=== PATIENT | male | born 1950 | race Caucasian/White ===

== ENCOUNTER 2025-03-01 23:56 | Emergency (ER) | payer OTHER ==
[2025-03-01] MEDS ORDERED: PHENYLEPHRINE 0.5% NOSE 15ML NAS ONE (23:58)
--- NOTE | 2025-03-02 00:30 | EDPHYS ---
Physician Documentation [facility] Name: Eusebio Saldana Age: 74 yrs Sex: Male : 1950 Arrival Date: 03/01/2025 Time: 23:56 Bed 13 Private MD: ED Physician Torsten Robles HPI: 03/02 00:04 This 74 yrs old Male presents to ER via Unassigned with complaints of epistaxis. ms3 00:04 74-year-old male presents to the emergency department via [facility] department for ms3 epistaxis that began approximately 1 hour prior to arrival. EMS estimates approximately 10 to 20 mL of blood loss. Patient denies trauma to his nose. Patient states he also had a nosebleed last week. Patient denies taking blood thinners, or pain.. Historical: - Allergies: 00:34 No Known Allergies; hm5 - PMHx: 00:34 Dementia; Hypertensive disorder; hm5 - Immunization history:: Adult Immunizations up to date. - Infectious Disease History:: Denies. - Social history:: Smoking status: unknown. ROS: 00:04 Constitutional: Negative for fever, and chills. ms3 00:04 Abdomen/GI: Negative for abdominal pain, nausea, vomiting, diarrhea, and constipation, MS/Extremity: Negative for injury and deformity, Skin: Negative for injury, rash, and discoloration, 00:04 ENT: Positive for nose bleed, Exam: 00:04 Constitutional: This is a well developed, well nourished patient who is awake, alert, ms3 and in no acute distress. Cardiovascular: Regular rate and rhythm with a normal S1 and S2. No gallops, murmurs, or rubs. Normal PMI, no JVD. No pulse deficits. Respiratory: Lungs have equal breath sounds bilaterally, clear to auscultation and percussion. No rales, rhonchi or wheezes noted. No increased work of breathing, no retractions or nasal flaring. Abdomen/GI: Soft, non-tender, with normal bowel sounds. No distension or tympany. No guarding or rebound. No evidence of tenderness throughout. 00:04 ENT: Nose: bleeding, is noted from both nares, and is minimal, clotted blood, in both nares, Vital Signs: 00:04 BP 170 / 88; Pulse 63; Resp 18; Temp 97.2(A); Pulse Ox 100% on R/A; Weight 79.38 kg; 5 Height 5 ft. 10 in. ; Pain 0/10; 00:36 BP 138 / 99; Pulse 53; Resp 18; Pulse Ox 99% on R/A; 5 00:04 Body Mass Index 25.11 (79.38 kg, 177.8 cm) [facility] 00:04 Pain Scale: Adult [facility] Procedures: 00:04 Epistaxis treatment: A small amount of bleeding noted from Treated using Oxymetazoline ms3 sprays, nasal clamp, Bleeding stopped. MDM: 00:03 Medical Screening Exam initiated ms3 00:04 Differential diagnosis: spontaneous epistaxis. ms3 02:59 Data reviewed: vital signs, nurses notes, and as a result, I will discharge patient. I ms3 considered the following discharge prescriptions or medication management in the emergency department Medications were administered in the Emergency Department. See MAR. Historians other than the Patient: EMS: [facility]. Counseling: I had a detailed discussion with the patient and/or guardian regarding the historical points, exam findings, and any diagnostic results supporting the discharge/admit diagnosis, the need for outpatient follow up, to return to the emergency department if symptoms worsen or persist or if there are any questions or concerns that arise at home. Special discussion: I discussed with the patient/guardian in detail that at this point there is no indication for admission to the hospital. It is understood, however, that if the symptoms persist or worsen the patient needs to return immediately for re-evaluation. ED course: On reevaluation epistaxis has resolved, patient is alert and oriented x 4, no apparent distress, nontoxic-appearing, speaking full sentences. Discussed necessity of follow-up with ENT in 2 to 3 days. Patient referred to Dr. Laboy. All questions were answered. Return precautions discussed include lightheadedness, worsening symptoms, or any other concerns. Administered Medications: 00:07 Drug: Willi-Synephrine Intranasal [place] 0.5 % 2 sprays Intranasal once Route: Intranasal; [facility] Site: both nares; Disposition Summary: 03/02/25 00:29 Discharge Ordered Notes: Location: Home ms3 Condition: Stable ms3 Diagnosis - Epistaxis ms3 Followup: ms3 - With: Laboy, Layne, MD - When: 2 - 3 days - Reason: Recheck today's complaints Discharge Instructions: - Discharge Summary Sheet ms3 - Nosebleed, Adult ms3 Forms: - Medication Reconciliation Form ms3 - Antibiotic Education ms3 - Prescription Opioid Use ms3 - Patient Portal Instructions ms3 - Leadership Thank You Letter ms3 Signatures: Torsten Robles DO DO ms3 Elizabet Purcell, RN RN hm5
--- NOTE | 2025-03-02 00:30 | ER ---
Nurse's Notes [facility] Name: Eusebio Saldana Age: 74 yrs Sex: Male : 1950 Arrival Date: 03/01/2025 Time: 23:56 Bed 13 Private MD: Diagnosis: Epistaxis Presentation: 03/02 00:04 Chief complaint: EMS states: epistaxis. Coronavirus screen: Client denies travel out of [facility] the [place] in the last 14 days. At this time, the client does not indicate any symptoms associated with coronavirus-19. Ebola Screen: Patient negative for fever greater than or equal to 101.5 degrees Fahrenheit, and additional compatible Ebola Virus Disease symptoms Patient denies exposure to infectious person. Patient denies travel to an Ebola-affected area in the 21 days before illness onset. No symptoms or risks identified at this time. Initial Sepsis Screen: Does the patient meet any 2 criteria? No. Patient's initial sepsis screen is negative. Does the patient have a suspected source of infection? No. Patient's initial sepsis screen is negative. Risk Assessment: Do you want to hurt yourself or someone else? Patient reports no desire to harm self or others. Onset of symptoms was March 01, 2025 at 23:15. Care prior to arrival: None. 00:04 [place] Of [place]: [place] [id number] 00:04 Acuity: PHILLIP 4 [facility] Triage Assessment: 00:06 General: Appears uncomfortable, well groomed, well developed, well nourished, Behavior [facility] is cooperative, anxious. Pain: Denies pain. EENT: Nares with bleeding noted bilaterally. Neuro: No deficits noted. Cardiovascular: No deficits noted. Respiratory: No deficits noted. GI: No deficits noted. No signs and/or symptoms were reported involving the gastrointestinal system. : No deficits noted. No signs and/or symptoms were reported regarding the genitourinary system. Derm: No deficits noted. No signs and/or symptoms reported regarding the dermatologic system. Musculoskeletal: No deficits noted. No signs and/or symptoms reported regarding the musculoskeletal system. Historical: - Allergies: 00:34 No Known Allergies; hm5 - PMHx: 00:34 Dementia; Hypertensive disorder; 5 - Immunization history:: Adult Immunizations up to date. - Infectious Disease History:: Denies. - Social history:: Smoking status: unknown. Screenin:32 [facility] ED Fall Risk Assessment (Adult) History of falling in the last 3 months, [facility] including since admission No falls in past 3 months (0 pts) Confusion or Disorientation Yes (5 pts) Intoxicated or Sedated No (0 pts) Impaired Gait No (0 pts) Mobility Assist Device Used No (0 pt) Altered Elimination No (0 pt) Score/Fall Risk Level 3 or more points = High Risk Oriented to surroundings, Maintained a safe environment, Educated pt \T\ family on fall prevention, incl call for assistance when getting out of bed, Assessed \T\ reinforced patient's understanding of fall precautions, Provided non-skid footwear, Hourly rounding (assess needs \T\ fall precautionary measures) done, Utilized family, sitter, or virtual chimney mechanic as indicated. Abuse screen: Denies threats or abuse. Denies injuries from another. Nutritional screening: No deficits noted. Tuberculosis screening: No symptoms or risk factors identified. Assessment: 00:34 Reassessment: please see triage assessment. pt assisting pt to get cleaned up from [facility] nose bleed. bleeding controlled after meds/nose clamp. Vital Signs: 00:04 BP 170 / 88; Pulse 63; Resp 18; Temp 97.2(A); Pulse Ox 100% on R/A; Weight 79.38 kg; [facility] Height 5 ft. 10 in. ; Pain 0/10; 00:36 BP 138 / 99; Pulse 53; Resp 18; Pulse Ox 99% on R/A; [facility] 00:04 Body Mass Index 25.11 (79.38 kg, 177.8 cm) [facility] 00:04 Pain Scale: Adult [facility] ED Course: 00:00 Patient arrived in ED. rv1 00:03 Torsten Robles DO is Attending Physician. ms3 00:04 Elizabet Purcell, ABHIJEET is Primary Nurse. 5 00:06 Triage completed. 5 00:29 Layne Laboy MD is Referral Physician. ms3 00:33 Arm band placed on left wrist. hm5 00:33 Patient has correct armband on for positive identification. Bed in low position. Call [facility] light in reach. Side rails up X2. Adult w/ patient. Provided Education on: plan of care. 00:33 No provider procedures requiring assistance completed. 5 Administered Medications: 00:07 Drug: Willi-Synephrine Intranasal [place] 0.5 % 2 sprays Intranasal once Route: Intranasal; 5 Site: both nares; Medication: 00:34 VIS not applicable for this client. [facility] Outcome: 00:29 Discharge ordered by . ms3 00:35 Discharged to home ambulatory, with family, [facility] 00:35 Condition: stable 00:35 Discharge instructions given to patient, family, Instructed on discharge instructions, follow up and referral plans. Demonstrated understanding of instructions, follow-up care, 01:01 Patient left the ED. [facility] Signatures: Torsten Robles DO DO ms3 Shae Lr rv1 Elizabet Purcell, RN RN 5 Corrections: (The following items were deleted from the chart) 00:35 00:34 Reassessment: please see triage assessment. pt assisting pt to get cleaned hm5 up from nose bleed [facility]
[2025-03-02 09:53] VITALS: TEMP 97.2
[2025-03-02 09:55] VITALS: BP 138/99; O2SAT 99
== END 2025-03-02 01:01 | disposition home or self-care (01) ==
LOC: ER 23:56
DX: R04.0 Epistaxis (principal)
CPT/HCPCS: 30901; 99283